=== PATIENT | male | born 1970 | race Caucasian/White ===

== ENCOUNTER 2019-02-20 09:20 | Emergency (ER) | payer SELFPAY ==
[2019-02-20 10:28] LABS: ABS Eosinophils 0.1 10^3/ul (0-0.6); ABS Lymphocytes 1.8 10^3/ul (1.0-4.8); ABS Monocytes 0.4 10^3/ul (0-0.8); ABS Neutrophils 3.3 10^3/ul (1.5-7.7); Eosinophil % 2.2 %; Hematocrit 41 % (42-52); Hemoglobin 14.1 g/dL (14.0-18.0); Lymphocyte % 32.2 %; Mean Corpuscular HGB Conc 34 g/dL (31-36); Mean Corpuscular Hemoglobin 32 pg (27-31); Mean Corpuscular Volume 92 fL (80-94); Mean Platelet Volume 7.4 fL (7.4-10.4); Nucleated Red Blood Cells % 0.1; Platelet Count 231 10^3/uL (150-450); Red Blood Count 4.48 10^6 /uL (4.18-5.48); Red Cell Distribution Width 13 % (10-15); White Blood Count 5.6 10^3/uL (3.5-10.8)
--- NOTE | 2019-02-20 10:38 | ED ---
Complex/Multi-Sys Presentation - HPI Summary HPI Summary: This pt is a 48 y/o male presenting to [facility] for a concern of metal poisoning. 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 He states after he cut the metal he had vomiting, sweating, tremors, arthralgia. Pt notes he is still having these symptoms and they have progressed. For the past 2 weeks he notes he has been having dilated pupils (feeling like they are wide open), hard time focusing, stuttering, palpitations, SOB, cough, dizziness, lightheadedness , constipation, headache, abd pain, arthralgia. Pt notes he has panic attacks at night where he can't take a deep full breath. Pt has seen his PCP for this 3 days ago and was referred to the ED to get a neurology referral. He has had blood drawn, he reports his level was elevated. He also visited the ER at [facility] last week. His medications include Cymbalta, Suboxone. Pt admits to smoking cigarettes. - History Of Current Complaint Chief Complaint: EDChemNuclearExpose Time Seen by Provider: 02/20/19 09:42 Hx Obtained From: Patient Onset/Duration: Lasting Weeks, Still Present Timing: Weeks Severity Currently: Mild Location: Negative Aggravating Factor(s): nothing Alleviating Factor(s): nothing Associated Signs And Symptoms: Positive: Dizziness, Headache, SOB, Cough, Palpitations, Vomiting, Abdominal Pain, Diaphoresis, Other - POSITIVE: difficulty focusing, lightheadedness, constipatoin, arthralgia.. Negative: Chest Pain, Nausea, Diarrhea, Dysuria, Fever - Allergies/Home Medications Allergies/Adverse Reactions: Allergies Allergy/AdvReac Type Severity Reaction Status Date / Time No Known Allergies Allergy Verified 02/20/19 09:32 Home Medications: Home Medications Buprenorphine HCl/Naloxone HCl [Buprenor-Nalox 12-3 mg Sl Film] 8 mg PO DAILY [History Confirmed 02/20/19] Buprenorphine HCl/Naloxone HCl [Buprenorp-Nalox 8-2 mg Sl Film] 24 mg PO DAILY 02/20/19 [History Confirmed 02/20/19] DULoxetine DR ROWLEY* [Cymbalta CAP*] 60 mg PO DAILY 02/20/19 [History Confirmed ] Loratadine 10 mg PO DAILY 02/20/19 [History Confirmed 02/20/19] Trazodone HCl 300 mg PO BEDTIME 02/20/19 [History Confirmed 02/20/19] Triamcinolone NASAL SPRAY* [Nasacort Aq Nasal [place]*] 1 spray .ROUTE BID [History Confirmed 02/20/19] PMH/Surg Hx/FS Hx/Imm Hx Endocrine/Hematology History: Denies: Hx Diabetes Cardiovascular History: Denies: Hx Hypertension Infectious Disease History: No Infectious Disease History: Denies: Traveled Outside the [place] in Last 30 Days - Family History Known Family History: Positive: Non-Contributory - Social History Alcohol Use: None Alcohol Amount: pt. denies Substance Use Type: Reports: None Substance Use Comment - Amount & Last Used: hx of denies current Smoking Status (MU): Heavy Every Day Tobacco Smoker Review of Systems Positive: Skin Diaphoresis. Negative: Fever, Chills Negative: Erythema Negative: Sore Throat Positive: Palpitations. Negative: Chest Pain Positive: Shortness Of Breath, Cough Gastrointestinal: Other - POSITIVE: constipation Positive: Abdominal Pain, Vomiting, Nausea Negative: dysuria, hematuria Positive: Arthralgia. Negative: Myalgia, Edema Negative: Rash Neurological: Other - POSITIVE: dizziness, lightheadedness, difficulty focusing , tremors, stuttering Positive: Headache All Other Systems Reviewed And Are Negative: Yes Physical Exam - Summary Physical Exam Summary: Constitutional: Well-developed, Well-nourished, Alert. (-) Distressed Skin: Warm, Dry HENT: Normocephalic; Atraumatic Eyes: Conjunctiva normal Neck: Musculoskeletal ROM normal neck. (-) JVD, (-) Stridor, (-) Tracheal deviation Cardio: Rhythm regular, rate normal, Heart sounds normal; Intact distal pulses; The pedal pulses are 2+ and symmetric. Radial pulses are 2+ and symmetric. (-) Murmur Pulmonary/Chest wall: Effort normal. (-) Respiratory distress, (-) Wheezes, (-) Rales Abd: Soft. (-) Tenderness, (-) Distension, (-) Guarding, (-) Rebound Musculoskeletal: (-) Edema Lymph: (-) Cervical adenopathy Neuro: Alert, Oriented x3, Strength normal, Cranial nerves II-XII are grossly intact. (-) Dysmetria, (-) Nystagmus, (-) Ataxia by finger to nose testing, (-) Sensory deficit. Psych: Anxious appearing. Triage Information Reviewed: Yes Vital Signs On Initial Exam: Initial Vitals Temp Pulse Resp BP Pulse Ox 97.9 F 71 20 135/78 98 02/20/19 09:28 02/20/19 09:28 02/20/19 09:28 02/20/19 09:28 02/20/19 09:28 Vital Signs Reviewed: Yes Procedures - Sedation Patient Received Moderate/Deep Sedation with Procedure: No Diagnostics - Vital Signs Vital Signs Temp Pulse Resp BP Pulse Ox 02/20/19 09:28 97.9 F 71 20 135/78 98 - Laboratory Lab Results: Lab Results 02/20/19 Range/Units 10: WBC 5.6 (3.5-10.8) 10^3/uL RBC 4.48 (4.18-5.48) 10^6 /uL Hgb 14.1 (14.0-18.0) g/dL Hct 41 L (42-52) % MCV 92 (80-94) fL MCH 32 H (27-31) pg MCHC 34 (31-36) g/dL RDW 13 (10-15) % Plt Count 231 (150-450) 10^3/uL MPV 7.4 (7.4-10.4) fL Neut % (Auto) 58.4 % Lymph % (Auto) 32.2 % [place] % (Auto) 6.5 % Eos % (Auto) 2.2 % Baso % (Auto) 0.7 % Absolute Neuts (auto) 3.3 (1.5-7.7) 10^3/ul Absolute Lymphs (auto) 1.8 (1.0-4.8) 10^3/ul Absolute Monos (auto) 0.4 (0-0.8) 10^3/ul Absolute Eos (auto) 0.1 (0-0.6) 10^3/ul Absolute Basos (auto) 0.0 (0-0.2) 10^3/ul Absolute Nucleated RBC 0.0 10^3/ul Nucleated RBC % 0.1 Result Diagrams: 02/20/19 10:19 02/20/19 10:19 Lab Statement: Any lab studies that have been ordered have been reviewed, and results considered in the medical decision making process. - CT Brain CT CT Interpretation Completed By: Radiologist Summary of CT Findings: IMPRESSION: No acute intracranial abnormality by CT. Dr. Mendes has reviewed this report. Complex Multi-Symp Course/Dx Assessment/Plan: Pt is a 48 y/o male presenting to [facility] for a concern of metal poisoning. 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 He states after he cut the metal he had vomiting, sweating, tremors, arthralgia. Pt notes he is still having these symptoms and they have progressed. For the past 2 weeks he notes he has been having dilated pupils (feeling like they are wide open), hard time focusing, stuttering, palpitations, SOB, cough, dizziness , lightheadedness, constipation, headache, abd pain, arthralgia. Lab work is unremarkable except for glucose of 129. Toxicology is negative. Brain CT shows no acute intracranial abnormality by CT. Pt will be discharged home with follow up from neurology and occupational health. He was given prescriptions for Atarax. Pt was given return to ED precautions. - Diagnoses Provider Diagnoses: Anxiety, Panic attack, Tremor Discharge ED - Sign-Out/Discharge Documenting (check all that apply): Patient Departure - Discharge home - Discharge Plan Condition: Stable Disposition: HOME Prescriptions: hydrOXYzine HCL TAB* [Atarax 25 MG TAB*] 25 mg PO Q8H PRN #15 tab PRN Reason: Agitation/Anxiety Patient Education Materials: Anxiety (ED), Panic Attack (ED), Tremors (ED) Referrals: Stacey Morales MD [Primary Care Provider] - Zoe Juárez MD [Medical Doctor] - 1 Week Gerson Delgado MD [Medical Doctor] - (in 2-3 days.) Additional Instructions: Please follow up with Dr. Juárez, neurologist, in 1 week. Also follow up with Dr. Delgado, occupational medicine, within 2-3 days. - Attestation Statements Document Initiated by Scribe: Yes Documenting Scribe: Sonia Maldonado Provider For Whom Scribe is Documenting (Include Credential): Leo Mendes MD Scribe Attestation: ISonia, scribed for Leo Mendes MD on 02/20/19 at 1215. Status of Scribe Document: Ready
--- OUTSIDE RECORDS SUMMARY | 2019-02-20 10:40 | XMS REPORT | Summary of Care ---
:1970 Author Organization [facility] Address [address] [facility] [place] [address] Care Team Providers Name Role Phone Varinder Mckay Primary Care Provider Reason for Visit Reason Comments Other Encounter Details Date Type Department Care Team Description 02/12/2019 Emergency [facility] Emergency Department Shaneka Umana MD Emergency [address] [place] [id number] [place] [address] Allergies No Known Allergiesdocumented as of this encounter (statuses as of 02/13/2019) Medications Medication Sig Dispensed Refills Start Date End Date Status TRAZODONE HCL PO Take 100 mg by 0 Active mouth DAILY. Citalopram Hydrobromide Take 20 mg by 0 Active (CELEXA PO) mouth DAILY 0700 on Empty Stomach. Buprenorphine Place under 0 Active HCl-Naloxone HCl 8-2 MG tongue DAILY. Sublingual SL Tab nicotine transdermal Place 21 mg onto 0 Active patch-daily (NICODERM) skin DAILY. 21 MG/24HR Transdermal PATCH 24 HR aspirin 325 MG Oral Tab Take 1 Tab by 60 Tab 0 12/15/2017 Active EC mouth TWICE DAILY. celeCOXIB (CELEBREX) 200 Take 1 Cap by 60 Cap 0 12/15/2017 Active MG Oral Cap mouth TWICE DAILY. gabapentin (NEURONTIN) Take 1 Cap by 30 Cap 0 12/15/2017 Active 300 MG Oral Cap mouth EVERY BEDTIME. oxycodone, immediate Take 1 Tab by 50 Tab 0 12/16/2017 Active release, (OXY-IR) 30 MG mouth Oral Tab DIRECTED. 1 to 2 tabs every 4 hrs as needed for pain gabapentin (NEURONTIN) Take 1 Cap by 90 Cap 0 01/03/2018 Active 100 MG Oral mouth THREE CapIndications: Surgical TIMES DAILY. 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 03/03/2006 Pain in joint, lower leg 02/25/2006 documented as of this encounter (statuses as of 02/13/2019) Resolved Problems Problem Noted Date Resolved Date Smoker 05/21/2014 11/26/2017 documented as of this encounter (statuses as of 02/13/2019) Immunizations Name Administration Dates Next Due Celestone Soluspan(12mg) 06/26/2015 Toradol (60 mg) 12/04/2014 documented as of this encounter Social History Tobacco Use Types Packs/Day Years Used Date Current Every Day Smoker Cigarettes 0.25 10 Smokeless Tobacco: Never Used Alcohol Use Drinks/Week oz/Week Comments No Sex Assigned at Date Recorded Not on file Job Start Date Occupation Industry Not on file Not on file Not on file Travel History Travel Start Travel End No recent travel history available. documented as of this encounter Last Filed Vital Signs Vital Sign Reading Time Taken Comments Blood Pressure 137/72 02/12/2019 6:00 PM EDT Pulse 76 02/12/2019 6:00 PM EDT Temperature 36.2 02/12/2019 4:26 PM EDT C (97.2 F) Respiratory Rate 27 02/12/2019 6:00 PM EDT Oxygen Saturation 97% 02/12/2019 6:00 PM EDT Inhaled Oxygen Concentration - - Weight - - Height - - Body Mass Index - - documented in this encounter Discharge Instructions Shaneka Guzman MD - 02/12/2019PLEASE CALL YOUR FAMILY DOCTOR FOR FOLLOW UP TOMORROW AND MAKE AN APPOINTMENT FOR NEUROLOGY FOLLOW UP. ASK YOUR FAMILY DOCTOR IS THEY USE A PARTICULAR NEUROLOGIST AttachmentsThe following attachments cannot be sent through Care Everywhere.ACUTE HEADACHE (DISCHARGE CARE) (DUTCH)VERTIGO (GENERAL INFORMATION ) (DUTCH)documented in this encounter Plan of Treatment Date Type Specialty Care Team Description 05/30/2019 Office Visit Dermatology Elio Guadalupe PA-C [address] [place] [address] [phone] Name Type Priority Associated Diagnoses Date/Time INPT/ED 12 LEAD EKG EKG STAT 02/12/2019 5:29 PM EDT Health Maintenance Due Date Last Done Comments PNEUMOCOCCAL 0-64 YRS (1 of 1978 1 - PPSV23) DEPRESSION SCREENING 1984 HIV SCREENING 1987 LIPID DISORDER SCREENING 1990 INFLUENZA VACCINE (#1) 2018 DIABETES SCREENING 02/13/2020 02/12/2019, 05/22/2018, 12/16/2017, Additional history exists HPV IMMUNIZATION SERIES Aged Out No longer eligible based on patient's age to complete this topic MENINGOCOCCAL VACCINE IMM Aged Out No longer eligible based on patient's age to complete this topic documented as of this encounter Implants Implanted Type Area Studio Potter Device Shelf Model / Identifier Expiration Serial / Lot Date Bone Cement, 40gm Full Dose - [id number] Right: DEPUY 02/23/2019 [id number] / Implanted: Qty: 1 on 12/13/2017 by Kosta Radford MD at [facility] Knee / [id number] Bone Cement, 40gm Full Dose - [id number] Right: DEPUY 03/25/2019 [id number] / Implanted: Qty: 1 on 12/13/2017 by Kosta Radford MD at [facility] / [id number] Lps-Flex Option Femoral F Rt - [id number] Right: SHANNANJULIEN OGLESBY 2024 / Implanted: Qty: 1 on 12/13/2017 by Kosta Radford MD at [facility] [employer] / [id number] Nexgen Lps All-Poly Tibia 10mm Size 5 Ef ([id number]) - [id number] Right: SHANNANJULIEN OGLESBY 09/23/[id number] / Implanted: Qty: 1 on 12/13/2017 by Kosta Radford MD at [facility] [employer] / [id number] Bone Cement, 40gm Full Dose - [id number] Right: DEPUY 08/13/2018 [id number] / Implanted: Qty: 1 on 12/13/2017 by Kosta Radford MD at [facility] / [id number] documented as of this encounter Procedures Procedure Name Priority Date/Time Associated Comments Diagnosis XR CHEST 2 VIEW PA AND STAT 02/12/2019 9:29 Results for this LATERAL (STANDARD) PM EDT procedure are in the results section. NT PROBNP STAT 02/12/2019 6:41 Results for this PM EDT procedure are in the results section. TROPONIN STAT 02/12/2019 6:41 Results for this PM EDT procedure are in the results section. MAGNESIUM LEVEL STAT 02/12/2019 6:41 Results for this PM EDT procedure are in the results section. LIPASE STAT 02/12/2019 6:41 Results for this PM EDT procedure are in the results section. COMPREHENSIVE STAT 02/12/2019 6:41 Results for this METABOLIC PANEL PM EDT procedure are in the results section. CT HEAD WITHOUT IV STAT 02/12/2019 6:34 Results for this CONTRAST PM EDT procedure are in the results section. CBC WITH DIFFERENTIAL STAT 02/12/2019 5:40 Results for this PM EDT procedure are in the results section. IN PT/ED 12 LEAD EKG STAT 02/12/2019 5:29 PM EDT documented in this encounter Results XR CHEST 2 VIEW PA AND LATERAL (STANDARD) (02/12/2019 9:29 PM EDT) Specimen Impressions Performed At No acute cardiopulmonary findings. Signed by Clint Castellon on 02/12/2019 9:33 PM Narrative Performed At Procedure(s): XR CHEST 2 VIEW PA AND LATERAL (STANDARD) Date of service: 02/12/2019 9:20 PM Provided clinical information: 48 years, Male, "LUNGS HURT AFTER INHALING HEAVY METAL FUMES AT WORK" Procedure and materials: Standard protocol. Comparison studies: 12/16/2017 Observations: The lungs are clear. There is no pneumothorax or effusion. The cardiomediastinal silhouette is normal. There is no acute osseous abnormality. Procedure Note Interface, Rad Results - 02/12/2019 9:35 PM EDT Procedure(s): XR CHEST 2 VIEW PA AND LATERAL (STANDARD) Date of service: 02/12/2019 9:20 PM Provided clinical information: 48 years, Male, "LUNGS HURT AFTER INHALING HEAVY METAL FUMES AT WORK" Procedure and materials: Standard protocol. Comparison studies: 12/16/2017 Observations: The lungs are clear. There is no pneumothorax or effusion. The cardiomediastinal silhouette is normal. There is no acute osseous abnormality. IMPRESSION No acute cardiopulmonary findings. Signed by Clint Castellon on 02/12/2019 9:33 PM LIPASE (02/12/2019 6:41 PM EDT) Lipase 39 23 - 300 U/L [facility] Specimen Blood - Blood specimen (specimen) Performing Organization Address [facility] Phone Number [facility] [address] [place] [address] [phone] MAGNESIUM LEVEL (02/12/2019 6:41 PM EDT) Magnesium 1.9 1.6 - 2.3 MG/DL [facility] Specimen Blood - Blood specimen (specimen) Performing Organization Address [facility] Phone Number [facility] [address] [place] [address] COMPREHENSIVE METABOLIC PANEL (02/12/2019 6:41 PM EDT) Sodium 140 134 - 145 mmol/L [facility] Potassium 4.1 3.5 - 5.1 mmol/L [facility] Chloride 105 98 - 107 mmol/L [facility] CO2 26 22 - 30 mmol/L [facility] Calcium 9.5 8.3 - 10.1 mg/dl [facility] Albumin 4.3 3.5 - 5.0 g/dl [facility] BUN 16 9 - 20 mg/dl [facility] Creatinine 0.7 (L) 0.8 - 1.5 mg/dl [facility] Glucose 96 70 - 99 mg/dl [facility] Total Protein 8.0 6.3 - 8.2 g/dl [facility] Total Bilirubin 0.3 0.0 - 1.1 MG/DL [facility] AST 30 17 - 59 U/L [facility] ALT 30 21 - 72 U/L [facility] Alkaline 65 40 - 150 U/L [facility] Phosphatase [facility] eGFR >60 See Interpretation [facility] Comment: Below ml/min/1.73ml GROUP Estimated GFR Interpretation: LABORATORY Above 60ml/min/1.73m2 = Normal Renal Function 30-59 ml/min/1.73m2 = Stage 3 Chronic Kidney Disease 15-29 ml/min/1.73m2 = Stage 4 Chronic Kidney Disease Less than 15 ml/min/1.73m2 = Stage 5 Chronic Kidney Disease The GFR value is calculated using the Modification of Diet in Renal Disease ( MDRD) Study Equation which can be found at: https://www.kidney.org/content/lvcp-pqvds-aqdrfoyn BUN/Creatinine 23 (H) 6 - 22 RATIO [facility] Ratio [facility] Anion Gap 9 3 - 11 mmol/L [facility] A/G Ratio 1.2 0.8 - 2.0 ratio [facility] Specimen Blood - Blood specimen (specimen) Performing Organization Address [facility] Phone Number [facility] [address] [place] [address] NT PROBNP (02/12/2019 6:41 PM EDT) NT PRO BNP 17 <125 pg/ml [facility] Comment: [facility] Recommended cut points for the diagnostic evaluation of heart failure patients with acute dyspnea* Ages (years) Optimal [place] (pg/ml) <50 450 50-75 900 >75 1800 *The [place] Journal of Cardiology NTproBNP results should be interpreted in the context of the overall picture. Serum concentrations of natriuretic peptides may be elevated in patients with acute myocardial infarction and renal insuffic iency. Certain drugs may alter results. Heterophilic antibodies are known to cause interference with immunoassays. Results which are inconsistent with clinical observation indicate a need for additional testing. NTproBNP testing performed on [employer]. Results will not correlate with other methodologies. Specimen Blood - Blood specimen (specimen) Performing Organization Address [facility] Phone Number [facility] [address] [place] [address] [phone] TROPONIN (02/12/2019 6:41 PM EDT) Troponin <0.012 0.000 - 0.034 [facility] Comment: ng/ml [facility] Negative less than or equal to 0.034 ng/ml Indeterminate 0.0351 - 0.119 ng/ml (Suggest Repeat in 4 Hours) Critical (AMI Cutoff) greater than or equal to 0.120 ng/ml Specimen Blood - Blood specimen (specimen) Performing Organization Address City/State/Zipcode Phone Number [facility] [address] [place] [address] CT HEAD WITHOUT IV CONTRAST (02/12/2019 6:34 PM EDT) Specimen Impressions Performed At No acute intracranial CT abnormalities. THIS DOCUMENT HAS BEEN ELECTRONICALLY SIGNED BY JAZZMINE ROMERO MD Narrative Performed At PROCEDURE INFORMATION: Exam: CT Head Without Contrast Exam date and time: 02/12/2019 6:24 PM Clinical history: 48 years old, male; Indication for study->dizziness TECHNIQUE: Imaging protocol: Computed tomography of the head without contrast. Radiation optimization: All CT scans at this facility use at least one of these dose optimization techniques: automated exposure control; mA and/or kV adjustment per patient size (includes targeted exams where dose is matched to clinical indication); or iterative reconstruction. COMPARISON: CT HEAD WITHOUT IV CONTRAST 05/22/2018 5:04 PM FINDINGS: Brain: No acute intraparenchymal or extra-axial hemorrhage or mass lesion. No mass effect. No acute intracranial CT abnormalities. Midline shift: No significant sulcal effacement or midline shift. Ventricles: The ventricles are symmetric and within normal limits. Bones/joints: Unremarkable. No acute fracture. Sinuses: No significant abnormality of the mastoid air cells or paranasal sinuses. Mastoid air cells: Visualized mastoid air cells are well aerated. Orbits: No significant abnormality of the orbits and globes. Soft tissues: No significant abnormality of the osseous structures or remaining soft tissues. Procedure Note Interface, Rad Results - 02/12/2019 6:39 PM EDT PROCEDURE INFORMATION: Exam: CT Head Without Contrast Exam date and time: 02/12/2019 6:24 PM Clinical history: 48 years old, male; Indication for study->dizziness TECHNIQUE: Imaging protocol: Computed tomography of the head without contrast. Radiation optimization: All CT scans at this facility use at least one of these dose optimization techniques: automated exposure control; mA and/or kV adjustment per patient size (includes targeted exams where dose is matched to clinical indication); or iterative reconstruction. COMPARISON: CT HEAD WITHOUT IV CONTRAST 05/22/2018 5:04 PM FINDINGS: Brain: No acute intraparenchymal or extra-axial hemorrhage or mass lesion. No mass effect. No acute intracranial CT abnormalities. Midline shift: No significant sulcal effacement or midline shift. Ventricles: The ventricles are symmetric and within normal limits. Bones/joints: Unremarkable. No acute fracture. Sinuses: No significant abnormality of the mastoid air cells or paranasal sinuses. Mastoid air cells: Visualized mastoid air cells are well aerated. Orbits: No significant abnormality of the orbits and globes. Soft tissues: No significant abnormality of the osseous structures or remaining soft tissues. IMPRESSION No acute intracranial CT abnormalities. THIS DOCUMENT HAS BEEN ELECTRONICALLY SIGNED BY JAZZMINE ROMERO MD CBC WITH DIFFERENTIAL (02/12/2019 5:40 PM EDT) WBC Count 7.18 4.23 - 9.07 K/uL [facility] RBC Count 4.57 4.30 - 5.89 M/UL [facility] Hemoglobin 14.1 13.7 - 17.5 g/dL [facility] Hematocrit 41.9 40.1 - 51.0 % [facility] MCV 91.7 79.0 - 92.2 FL [facility] MCH 30.9 25.7 - 32.2 PG [facility] MCHC 33.7 32.3 - 36.5 g/dL [facility] Platelet Count 231 163 - 337 K/uL [facility] MPV 9.4 9.4 - 12.4 FL [facility] RDW 13.2 11.6 - 14.4 % [facility] Neutrophil % 62.1 34.0 - 67.9 % [facility] Lymphocyte % 29.0 21.8 - 53.1 % [facility] Monocyte % 6.1 5.3 - 12.2 % [facility] Eosinophil % 1.7 0.8 - 7.0 % [facility] Basophil % 0.7 0.2 - 1.2 % [facility] nRBC % 0.0 0.0 - 0.2 % [facility] Neutrophil # 4.46 1.78 - 5.38 K/UL [facility] Lymphocyte # 2.08 1.32 - 3.57 K/UL [facility] Monocyte # 0.44 0.30 - 0.82 K/UL [facility] Eosinophil # 0.12 0.04 - 0.54 K/UL [facility] Basophil # 0.05 0.01 - 0.08 K/UL [facility] Immature Gran % 0.4 0.0 - 0.4 % [facility] Immature Gran # 0.03 0.00 - 0.03 K/uL [facility] NRBC # 0.00 0.00 - 0.12 K/uL [facility] Specimen Blood - Blood specimen (specimen) Performing Organization Address City/State/Zipcode Phone Number [facility] [address] [place] [address] documented in this encounter Visit Diagnoses Diagnosis Nonintractable headache, unspecified chronicity pattern, unspecified headache type - Primary Dizziness Dizziness and giddiness documented in this encounter Administered Medications Medication Order MAR Action Action Date Dose Rate Site normal saline bolus 1,000 mL New Bag 02/12/2019 5:41 PM EDT 1,000 mL 1,000 mL, Intravenous, BOLUS, 1 dose, 02/12/19 at 1820 documented in this encounter
[2019-02-20 10:47] LABS: ALT 23 U/L (7-52); AST 20 U/L (13-39); Albumin 4.1 g/dL (3.2-5.2); Albumin/Globulin Ratio 1.3 (1-3); Alkaline Phosphatase 71 U/L (34-104); Anion Gap 6 mmol/L (2-11); BUN/Creatinine Ratio 20.8 (8-20); Blood Urea Nitrogen 16 mg/dL (6-24); CO2 Carbon Dioxide 26 mmol/L (22-32); Calcium 9.2 mg/dL (8.6-10.3); Chloride 103 mmol/L (101-111); Creatine Kinase 116 U/L (10-223); EGFR African American 131.6 (>60); EGFR Non-African American 108.8 (>60); Globulin 3.1 g/dL (2-4); Glucose 129 mg/dL (70-100); Potassium 3.9 mmol/L (3.5-5.0); Sodium 135 mmol/L (135-145); Total Protein 7.2 g/dL (6.4-8.9)
[2019-02-20 10:59] LABS: Urine Appearance Clear; Urine Bacteria Absent (Absent); Urine Bilirubin Negative (Negative); Urine Blood 1+ (Negative); Urine Color Straw; Urine Glucose Negative (Negative); Urine Ketones Negative (Negative); Urine Nitrite Negative (Negative); Urine Protein Negative (Negative); Urine Red Blood Cell Trace(0-2/hpf) (Absent); Urine Specific Gravity 1.005 (1.010-1.030); Urine Urobilinogen Negative (Negative); Urine White Blood Cell Trace(0-5/hpf) (Absent)
[2019-02-20 11:08] LABS: Urine Benzodiazepine Screen None Detected (None Detect); Urine Opiates Screen None Detected (None Detect)
[2019-02-20 11:09] LABS: Acetaminophen < 15 mcg/mL; Alcohol < 10 mg/dL (<10); Salicylate < 2.50 mg/dL (<30)
[2019-02-20 11:24] LABS: TSH (Thyroid Stimulating Horm) 1.55 mcIU/mL (0.34-5.60)
[2019-02-20 12:32] VITALS: BP 131/79
== END 2019-02-20 12:31 | disposition home or self-care (01) ==
LOC: ED 09:20
DX: F41.0 Panic disorder [episodic paroxysmal anxiety] (principal); R25.1 Tremor, unspecified; F17.210 Nicotine dependence, cigarettes, uncomplicated; R11.2 Nausea with vomiting, unspecified; R00.2 Palpitations; R06.02 Shortness of breath; R05 Cough; R42 Dizziness and giddiness; R51 Headache; Z77.011 Contact with and (suspected) exposure to lead; Z77.018 Contact with and (suspected) exposure to other hazardous metals; Z79.899 Other long term (current) drug therapy
CPT/HCPCS: 36415; 70450; 80053; 80307; 80320; 80329; 81003; 81015; 82550; 83605; 83885; 84443; 85025; 87086; 99283; G0480

== ENCOUNTER 2019-05-16 14:52 | Emergency (ER) | payer SELFPAY ==
[2019-05-16 15:38] LABS: ABS Eosinophils 0.2 10^3/ul (0-0.6); ABS Lymphocytes 1.9 10^3/ul (1.0-4.8); ABS Monocytes 0.4 10^3/ul (0-0.8); ABS Neutrophils 2.5 10^3/ul (1.5-7.7); Hematocrit 40 % (42-52); Hemoglobin 13.8 g/dL (14.0-18.0); Lymphocyte % 37.8 %; Mean Corpuscular HGB Conc 35 g/dL (31-36); Mean Corpuscular Hemoglobin 32 pg (27-31); Mean Corpuscular Volume 92 fL (80-94); Mean Platelet Volume 7.6 fL (7.4-10.4); Nucleated Red Blood Cells % 0.1; Platelet Count 212 10^3/uL (150-450); Red Blood Count 4.36 10^6 /uL (4.18-5.48); Red Cell Distribution Width 13 % (10-15); White Blood Count 5.1 10^3/uL (3.5-10.8)
--- NOTE | 2019-05-16 15:39 | ED ---
HPI Chest Pain - HPI Summary HPI Summary: Patient is a 48 y/o M presenting to the ED for a chief complaint of left-sided chest pain that radiates to the mid upper back and left arm that began during a pulmonary function test. The chest pain lasted for less than 1 minute before resolving. Patient states he occasionally has chest pain with exertion and shortness of breath with exertion but states this was different. Patient denies fever, cough, nausea, or vomiting. He denies having a cardiac stress test in the past. 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 FMHx is significant for cardiac disease in his father. Patient admits tobacco use. - History of Current Complaint Chief Complaint: EDChestPainROMI Time Seen by Provider: 05/16/19 14:56 Hx Obtained From: Patient Onset/Duration: Atraumatic, Still Present Timing: Intermittent, Lasting Seconds - About 1 minute Initial Severity: Mild Current Severity: Mild Pain Intensity: 3 Pain Scale Used: 0-10 Numeric Chest Pain Location: Diffuse Chest Pain Radiates: Yes Chest Pain Radiates To:: Back - Mid upper back, Arm - Left Aggravating Factor(s): Nothing Alleviating Factor(s): Spontaneous Resolution Associated Signs and Symptoms: Positive: Chest Pain - With exertion, Shortness of Breath - With exertion. Negative: Fever, Nausea, Cough, Vomiting - Allergy/Home Medications Allergies/Adverse Reactions: Allergies Allergy/AdvReac Type Severity Reaction Status Date / Time No Known Allergies Allergy Verified 05/16/19 14:57 Home Medications: Home Medications Buprenorp/Nalox 8-2 MG SL TAB [Suboxone 8-2 mg SL TAB*] 1 tab.sl SL DAILY [History Confirmed 05/16/19] Buprenorphine TAB* [Subutex TAB*] 8 mg SL DAILY 05/16/19 [History Confirmed ] Furosemide TAB* [Lasix TAB*] 20 mg PO DAILY 05/16/19 [History Confirmed 05/16/19 ] PMH/Surg Hx/FS Hx/Imm Hx Previously Healthy: Yes Endocrine/Hematology History: Denies: Hx Diabetes Cardiovascular History: Denies: Hx Hypercholesterolemia, Hx Hypertension Sensory History: Denies: Hx Legally Blind, Hx Deafness Opthamlomology History: Denies: Hx Legally Blind EENT History: Denies: Hx Deafness - Surgical History Surgical History: None Surgery Procedure, Year, and Place: None Infectious Disease History: No Infectious Disease History: Denies: Traveled Outside the [place] in Last 30 Days - Family History Known Family History: Positive: Cardiac Disease - In father - Social History Occupation: Employed Full-time Lives: With Family Alcohol Use: None Alcohol Amount: pt. denies Hx Substance Use: No Substance Use Type: Reports: None Substance Use Comment - Amount & Last Used: hx of denies current Hx Tobacco Use: Yes Smoking Status (MU): Light Every Day Tobacco Smoker Review of Systems Negative: Fever Positive: Chest Pain - Left-sided, and with exertion Positive: Shortness Of Breath - With exertion. Negative: Cough Negative: Vomiting, Nausea Positive: Myalgia - Mid upper back and left arm that radiates from the chest All Other Systems Reviewed And Are Negative: Yes Physical Exam - Summary Physical Exam Summary: Constitutional: Well-developed, Well-nourished, Alert. (-) Distressed Skin: Warm, Dry HENT: Normocephalic; Atraumatic Eyes: Conjunctiva normal Neck: Musculoskeletal ROM normal neck. (-) JVD, (-) Stridor, (-) Nuchal rigidity Cardio: Rhythm regular, rate normal, Heart sounds normal; Intact distal pulses; Radial pulses are 2+ and symmetric. (-) Murmur Pulmonary/Chest wall: Effort normal. (-) Respiratory distress, (-) Wheezes, (-) Rales Abd: Soft, (-) tenderness, (-) Distension, (-) Guarding, (-) Rebound Musculoskeletal: (-) Edema Lymph: (-) Cervical adenopathy Neuro: Alert, Oriented x3 Psych: Mood and affect Normal Triage Information Reviewed: Yes Vital Signs On Initial Exam: Initial Vitals Pulse Resp BP Pulse Ox 103 16 169/98 97 05/16/19 14:49 05/16/19 14:49 05/16/19 14:49 05/16/19 14:49 Vital Signs Reviewed: Yes Procedures - Sedation Patient Received Moderate/Deep Sedation with Procedure: No Diagnostics - Vital Signs Vital Signs Temp Pulse Resp BP Pulse Ox 05/16/19 15:15 91 12 137/83 97 05/16/19 15:03 100 16 95 05/16/19 14:55 99.6 F 102 18 169/98 98 05/16/19 14:49 103 16 169/98 97 - Laboratory Lab Results: Lab Results 05/16/19 Range/Units 15:09 WBC 5.1 (3.5-10.8) 10^3/uL RBC 4.36 (4.18-5.48) 10^6 /uL Hgb 13.8 L (14.0-18.0) g/dL Hct 40 L (42-52) % MCV 92 (80-94) fL MCH 32 H (27-31) pg MCHC 35 (31-36) g/dL RDW 13 (10-15) % Plt Count 212 (150-450) 10^3/uL MPV 7.6 (7.4-10.4) fL Neut % (Auto) 49.6 % Lymph % (Auto) 37.8 % [place] % (Auto) 7.9 % Eos % (Auto) 4.0 % Baso % (Auto) 0.7 % Absolute Neuts (auto) 2.5 (1.5-7.7) 10^3/ul Absolute Lymphs (auto) 1.9 (1.0-4.8) 10^3/ul Absolute Monos (auto) 0.4 (0-0.8) 10^3/ul Absolute Eos (auto) 0.2 (0-0.6) 10^3/ul Absolute Basos (auto) 0.0 (0-0.2) 10^3/ul Absolute Nucleated RBC 0.0 10^3/ul Nucleated RBC % 0.1 Result Diagrams: 05/16/19 15:09 05/16/19 15:09 Lab Statement: Any lab studies that have been ordered have been reviewed, and results considered in the medical decision making process. - Radiology Chest X-ray Radiology Interpretation Completed By: Radiologist Summary of Radiographic Findings: Chest X-ray IMPRESSION: No active cardiopulmonary disease is noted. Reviewed by Dr. Torres. - EKG 14:48 Cardiac Rate: Tachycardia - 110 BPM EKG Rhythm: Sinus Tachycardia ST Segment: Normal Ectopy: None Summary of EKG Findings: An EKG at 14:48 reveals sinus tachycardia with 110 BPM , nml axis, nml intervals. No STEMI. No acute changes. ED physician has reviewed and interpreted this EKG. Chest Pain Course/Dx - Course Course Of Treatment: 48 y/o M w hx chronic lung disease p/w CP after PFT. - VSS NAD. - patient had no recurrent episodes of pain while in ED. Pain was non exertional, no cardiac hx. - does have a hx of occasional SOB and CP w ambulation but denies this was similar. No recent stress so advised patient if his workup here is normal he still needs to follow up for stress test w PCP given hx of CP. Chest Pain DDX: The patient is well appearing, with stable vitals. Given the patient's clinical presentation, highest on differential is atypical CP. ACS: EKG w/o acute ischemic changes, trop negx1. HEART Score. Based on a HEART score of 3 the patient has a low risk (<2% chance) of major adverse cardiac event within the next 6 weeks. I explained to the patient that based on the work-up today, her risk of heart attack is low and that he/she will be discharged with outpatient follow-up. Strict return precautions were discussed regarding worsening chest pain, new / atypical pain, shortness of breath, or any other serious concerns. Patient endorsed understanding and has no questions at this time. Although less likely, differential also includes the following: --Pneumothorax: Equal breath sounds, story inconsistent since gradual onset of symptoms. CXR shows no evidence of pneumothorax. Unlikely. -- Cardiac tamponade: The history and physical are not concerning for tamponade. No Pulsus Paradoxus, no tachypnea. Unlikely. --Mediastinitis or esophageal rupture: The history is not consistent, as the patient has had no recent history of significant wretching, instrumentation, or mediastinal surgeries. Unlikely. --Aortic dissection: The patient does not describe the classical tearing chest pain. Did have some pain to shoulders/back no resolved. CXR does not show mediastinal widening or other signs of aortic dissection. Unlikely. -- ACS: The initial EKG shows no ischemic changes. The initial troponin is not elevated. - Diagnoses Provider Diagnoses: Chest pain Discharge ED - Sign-Out/Discharge Documenting (check all that apply): Sign-Out Patient Signing out patient TO: Ollie Rich - Patient is a sign-out at 19:00 on 05/[address] Gilbert Torres MD to Dr. Ollie Rich MD at shift change, pending repeat troponin, further workup, and disposition. - Discharge Plan Condition: Good Disposition: HOME Patient Education Materials: Chest Pain (ED) Referrals: Malika Romero MD [Primary Care Provider] - Brandon Stoddard MD [Medical Doctor] - Additional Instructions: You were seen in the emergency department for chest pain. Your EKG (heart tracing), labs and chest x-ray did not show any cause for pain. Important that you follow up with you primary care doctor in the next 1-2 days to help schedule an outpatient stress test. Alternatively you could be seen in the cardiology clinic and the patch setter could evaluate you. As we discussed if your symptoms in the meantime are getting worse, i.e. easier to precipitate chest pain, chest pain that is prolonged or more severe, or you develop other symptoms associated with the pain, we should see you back here forthwith. - Billing Disposition and Condition Condition: GOOD Disposition: Home - Attestation Statements Document Initiated by Mikie: Yes Documenting Scribe: Estrella Fischer Provider For Whom Mikie is Documenting (Include Credential): Gilbert Torres MD Scribe Attestation: I, Estrella Fischer, scribed for Gilbert Torres MD on 05/17/19 at 1105. Scribe Documentation Reviewed: Yes Provider Attestation: The documentation as recorded by the Estrella de jesus accurately reflects the service I personally performed and the decisions made by , Gilbert Torres MD Status of Scribe Document: Viewed
--- OUTSIDE RECORDS SUMMARY | 2019-05-16 15:50 | XMS REPORT | Continuity of Care Document ---
:1970 External Reference #:[id number] Author Name Sue Sanchez MD (transmitted by agent of provider Cinthia Quesada) Address [address], [address] [place] [address] Care Team Providers Name Role Phone Malika Romero MD - Family Care Team Information Group Program Manager Medicine Problems Description No Information Available Social History Type Date Description Comments Sex Unknown ETOH Use Denies alcohol use Tobacco Use Start: Unknown Heavy tobacco smoker (more for 30 years than 10 cigarettes/day) Recreational Drug Use Denies Drug Use Smoking Status Reviewed: 03/21/19 Heavy tobacco smoker (more for 30 years than 10 cigarettes/day) Exercise Type/Frequency Exercises rarely Allergies, Adverse Reactions, Alerts Description No Known Drug Allergies Medications Active Medications SIG Qnty Indications Ordering Provider Date Buprenorphine HCL 1 tab daily Unknown 8mg Tablets Sub Duloxetine HCL 1 by mouth every Unknown 60mg Caps day DR Part Loratadine once a day for Unknown 10mg Capsules allergies as needed Trazodone HCL 1 tab at bedtime Unknown 300mg Tablets Nasacort Allergy 24HR 1 puff each Unknown nostril in the 55mcg/Act Aerosol morning Buprenorphine Strips 2 strips under the Unknown 12 MG tongue every night Furosemide Malika Romero 20mg Tablets MD [place] Immunizations Description No Information Available Vital Signs Date Vital Result Comment 03/21/2019 7:24am Height 68.75 inches 5'8.75" Weight 260.00 lb Heart Rate 87 /min BP Systolic Sitting 130 mmHg BP Diastolic Sitting 80 mmHg O2 % BldC Oximetry 96 % BMI (Body Mass Index) 38.7 kg/m2 02/22/2019 3:18pm Height 68.75 inches 5'8.75" Weight 260.00 lb Heart Rate 78 /min BP Systolic 164 mmHg BP Diastolic 94 mmHg BMI (Body Mass Index) 38.7 kg/m2 Procedures Description No Information Available Medical Devices Description No Information Available Encounters Type Date Location Provider Dx Diagnosis Office Visit 03/21/2019 Pulmonology And Sue Sanchez J98.4 Other disorders 7:30a [facility] of lung [facility] R06.02 Shortness of breath F17.210 Nicotine dependence, cigarettes, uncomplicated J98.4 Other disorders of lung Office Visit 02/22/2019 3:00p [facility] Wilbert Samaniego 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 medical condition H05.20 Unspecified exophthalmos R20.2 Paresthesia of skin R25.1 Tremor, unspecified Assessments Date Code Description Provider 03/21/2019 J98.4 Other disorders of lung Sue Sanchez MD 03/21/2019 R06.02 Shortness of breath Sue Sanchez MD 03/21/2019 F17.210 Nicotine dependence, cigarettes, Sue Sanchez MD uncomplicated 03/21/2019 J98.4 Other disorders of lung Sue Sanchez MD 02/22/2019 G47.01 Insomnia due to medical condition Wilbert Crowder M.D. 02/22/2019 H05.20 Unspecified exophthalmos Wilbert Crowder M.D. 02/22/2019 R20.2 Paresthesia of skin Wilbert Crowder M.D. 02/22/2019 R25.1 Tremor, unspecified Wilbert Crowder M.D. Plan of Treatment Future Appointment(s):05/10/2019 8:30 am - Wilbert Crowder M.D. at [facility]03/21/2019 - Sue Sanchez MDJ98.4 Other disorders of lungNew Xrays:CT Chest W/O, Ordered: 03/21/19New Orders:PFTW/Spirometry Vol Pre/Post Bronchdilat Dlco Complete, Ordered: 03/21/19Follow up:3 bhbaiL90.02 Shortness of nlawbpQ59.210 Nicotine dependence, cigarettes, uncomplicated Functional Status Description No Information Available Mental Status Description No Information Available Referrals Description No Information Available
[2019-05-16 15:53] LABS: Albumin 3.9 g/dL (3.2-5.2); Albumin/Globulin Ratio 1.4 (1-3); BUN/Creatinine Ratio 21.1 (8-20); Calcium 8.7 mg/dL (8.6-10.3); EGFR African American 133.6 (>60); EGFR Non-African American 110.4 (>60); Globulin 2.8 g/dL (2-4); Potassium 3.8 mmol/L (3.5-5.0); Total Bilirubin 0.2 mg/dL (0.2-1.0); Total Protein 6.7 g/dL (6.4-8.9)
--- NOTE | 2019-05-16 19:13 | ED ---
Progress - Progress Note Progress Note: Pt is a signout from Dr. Torres at 1900 on 05/16/2019 pending 2nd troponin. Course/Dx - Course Course Of Treatment: Pt is a signout from Dr. Torres at 1900 on 05/16/2019 pending 2nd troponin. Pt's 2nd troponin is nml. - Diagnoses Provider Diagnoses: Chest pain Discharge ED - Sign-Out/Discharge Documenting (check all that apply): Patient Departure, Receiving Sign-Out Receiving patient FROM: Gilbert Torres - Discharge Plan Condition: Good Disposition: HOME Patient Education Materials: Chest Pain (ED) Referrals: Malika Romero MD [Primary Care Provider] - Brandon Stoddard MD [Medical Doctor] - Additional Instructions: You were seen in the emergency department for chest pain. Your EKG (heart tracing), labs and chest x-ray did not show any cause for pain. Important that you follow up with you primary care doctor in the next 1-2 days to help schedule an outpatient stress test. Alternatively you could be seen in the cardiology clinic and the yard engineer could evaluate you. As we discussed if your symptoms in the meantime are getting worse, i.e. easier to precipitate chest pain, chest pain that is prolonged or more severe, or you develop other symptoms associated with the pain, we should see you back here forthwith. - Billing Disposition and Condition Condition: GOOD Disposition: Home - Attestation Statements Document Initiated by Mikie: Yes Documenting Scribe: Dayna Gloria Provider For Whom Mikie is Documenting (Include Credential): Ollie Rich MD. Scribe Attestation: Dayna Curry, lized for Ollie Rich MD. on 05/17/19 at 0540. Scribe Documentation Reviewed: Yes Provider Attestation: The documentation as recorded by the Dayna de jesus accurately reflects the service I personally performed and the decisions made by me, Ollie Rich MD. Status of Scribe Document: Viewed
[2019-05-16 19:51] VITALS: BP 128/77
== END 2019-05-16 19:40 | disposition home or self-care (01) ==
LOC: ED 14:52
DX: R07.9 Chest pain, unspecified (principal); F17.200 Nicotine dependence, unspecified, uncomplicated; Z79.899 Other long term (current) drug therapy
CPT/HCPCS: 36415; 71046; 80053; 84484; 85025; 93005; 99284